=== PATIENT | female | born 1985 | race African-American/Black ===

== ENCOUNTER 2021-02-01 11:01 | Emergency (ER) | payer SELFPAY ==
[~2021-02-01] VITALS: Ht 167.6 cm; Wt 64.0 kg
[2021-02-01] MEDS: HYDROCODONE/ACETAMINOPHEN 5/325MG TABLET PO STA ×2 (11:21→14:45)
[2021-02-01 14:33] LABS: BASOPHILS % 0.4 % (0.0-2.0); EOSINOPHILS % 0.9 % (0.0-5.0); HEMATOCRIT. 41.4 % (36.0-48.0); HEMOGLOBIN. 12.8 g/dL (12.0-16.0); LYMPHOCYTES % 26.7 % (20.0-50.0); MEAN CORPUSCULAR HEMOGLOBIN 21.3 pg (28.0-32.0); MONOCYTES % 6.7 % (2.0-8.0); NEUTROPHILS % 65.3 % (40.0-76.0); PLATELET 441 x1000/uL (130-400); RED CELL DISTRIBUTION WIDTH 17.2 % (11.6-14.6)
[2021-02-01 14:39] LABS: CHLORIDE 107 mEq/L (98-107)
[2021-02-01] MEDS ORDERED: POTASSIUM CHLORIDE 20MEQ TABLET SR PO NR (15:00)
[2021-02-01] MEDS ORDERED: ACETAMINOPHEN WITH CODEINE 300/30MG TABLET PO ONE (15:15)
[2021-02-01 15:55] LABS: PLATELET ESTIMATE INCREASED
[2021-02-01 17:21] VITALS: BP 125/82
== END 2021-02-01 17:27 | disposition home or self-care (01) ==
LOC: ER 11:01
DX: M79.605 Pain in left leg (principal)
CPT/HCPCS: 36415; 73560; 73590; 80053; 80307; 80329; 85025; 85044; 99285